=== PATIENT | male | born 2000 | race Caucasian/White ===

== ENCOUNTER 2023-10-22 15:43 | Emergency (ER) | payer OTHER, SELFPAY ==
--- NOTE | 2023-10-22 15:44 | ED.URI ---
HPI - URI/Sore Throat General Chief Complaint: Upper Respiratory Infection Stated Complaint: Sore Throat Time Seen by Provider: 10/22/23 16:05 Source: patient, RN notes reviewed and old records reviewed Mode of arrival: ambulatory Limitations: no limitations History of Present Illness HPI Narrative: 23-year-old male presents to the [facility] with complaints of a sore throat, feeling feverish, body aches that started last night. Took 1 dose of Tylenol Related Data Home Medications Medication Instructions Recorded Confirmed No Home Medications 10/22/23 10/22/23 Allergies Allergy/AdvReac Type Severity Reaction Status Date / Time No Known Allergies Allergy Verified 10/22/23 15:54 Review of Systems Review of Systems: All systems reviewed & are unremarkable except as noted in HPI and below Constitutional: Constitutional: Reports as per HPI, Reports body ache(s), Reports fatigue and Reports fever(s) (Subjective) Eyes: Eyes: Reports no additional eye complaints ENT: Reports as per HPI and Reports sore throat Cardiovascular: Cardiovascular: Reports no additional cardiovascular complaints, Denies chest pain and Denies dyspnea Respiratory: Respiratory: Reports no additional respiratory complaints, Denies chest congestion, Denies cough and Denies dyspnea Gastrointestinal: Gastrointestinal: Reports no additional gastrointestinal complaints, Denies abdominal pain, Denies nausea and Denies vomiting Musculoskeletal: Musculoskeletal: Reports no additional musculoskeletal complaints Integumentary/Breasts: Skin/Breast: Reports system reviewed and no additional complaints, except as docu Neurologic: Reports system reviewed and no additional complaints, except as documented Psychiatric: Psychiatric: Reports no additional psychiatric complaints Allergic/Immunologic: Allergic/Immunologic: Reports no additional allergic/immunologic complaints PMFSH Comments At the time of my signature, I reviewed and agree with the nursing past medical, surgical, social, and family history. There is no relevant family history pertinent to the patient complaint. Exam Const: General: cooperative, healthy appearing, comfortable, no acute distress, well developed, alert and well nourished Nutritional Appearance: well nourished Orientation/consciousness: patient oriented x3 Limitations: no limitations HENMT: Head: normal to inspection Ears: hearing grossly normal bilaterally, external ears normal, TM's normal bilaterally, EAC's normal, mastoids normal and no periauricular adenopathy Face/Nose/Sinus: Normal external nose present, Normal nares present, Normal nasal mucous membranes and turbinates present, normal facial exam and face symmetric Face and sinus: normal facial exam and face symmetric Mouth: Yes Normal oral and palatal mucosa present, Yes lip normal and Yes tongue normal Throat: tonsils normal, uvula midline, posterior oropharynx abnormal cobblestoning; no edema, no erythema and no exudates, postnasal drainage and no uvular edema Eyes: General: appearance normal, both eyes and all related structures Alignment and Position: alignment normal Periorbital: periorbital findings normal Pupils: Equal, round and reactive pupils present EOM: EOMs intact bilaterally Neck: Neck: normal visual inspection, full ROM, no lymphadenopathy and no meningeal signs Chest: Chest palpation & inspection: normal inspection of the chest Resp: Effort & Inspection: normal respiratory effort and able to speak in complete sentences Auscultation: clear to auscultation bilaterally, no crackles, no rales, no rhonchi and no wheezes Cardio: Rate: regular rate Rhythm: regular rhythm Skin: General skin exam: normal color and no rashes or lesions noted Lesions: no lesions Rashes: no rashes Trauma: no lacerations or abrasions Wounds: no wounds Neuro: General: patient oriented x3, gait normal, tone normal, moves all extremities and no meningeal signs Cranial nerves:
[2023-10-22 15:58] VITALS: BP 107/71; PULSE 97; RESP 16; TEMP 36.5; O2SAT 100
[2023-10-22 16:06] LABS: EDSTREPNEGPOS1 Negative (Negative)
== END 2023-10-22 16:23 | disposition home or self-care (01) ==
PROVIDERS: Emergency Provider Nurse Practitioner
DX: R09.82 Postnasal drip (principal); J06.9 Acute upper respiratory infection, unspecified; J02.9 Acute pharyngitis, unspecified
CPT/HCPCS: 87081; 87880; 99203; G0463

== ENCOUNTER 2024-02-13 13:42 | Emergency (ER) | payer OTHER, SELFPAY ==
[2024-02-13 14:02] VITALS: BP 114/74; PULSE 116; RESP 22; TEMP 37.8; O2SAT 100
--- NOTE | 2024-02-13 14:16 | ED_ITS ---
HPI - URI/Sore Throat General Chief Complaint: Upper Respiratory Infection Stated Complaint: fever,vomiting,cough History of Present Illness HPI Narrative: patient is a 23-year-old male, without significant past medical history, presents to [facility] with 3 day history of URI symptoms, body aches, chills, sore throat, nasal congestion and a productive cough with green sputum reported. He notes that his nasal discharge has been clear. He has checked his temperature at home and T-max is 100.4? this morning. He has no known sick contacts but does report that his best friend who is an RN advised him of the pneumonia that has been going around and that has prompted his visit. He denies associated chest pain shortness of breath, he has no diarrhea or constipation reports he has had some nausea and vomited once 2 days ago. He has been eating a bland diet since that time and tolerating well. He denies any additional associated symptoms or modifying factors Related Data Allergies Allergy/AdvReac Type Severity Reaction Status Date / Time No Known Allergies Allergy Verified 02/13/24 14:06 Review of Systems Constitutional: Comments: refer to HPI ENT: Comments: refer HPI Respiratory: Comments: for HPI Exam Const: General: healthy appearing, no acute distress and alert Nutritional Appearance: well nourished Orientation/consciousness: patient oriented x3 Limitations: no limitations HENMT: Head: normal to inspection Ears: external ears normal, TM's normal bilaterally and EAC's normal Face/Nose/Sinus: Normal external nose present Mouth: Yes Normal oral and palatal mucosa present and Yes lip normal Throat: posterior oropharynx normal and uvula midline Eyes: Conjunctivae: conjunctivae normal EOM: EOMs intact bilaterally Neck: Neck: normal visual inspection, no lymphadenopathy and no meningeal signs Resp: Effort & Inspection: normal respiratory effort Auscultation: diminished lung sounds bilateral in the lower lung pulliam Cardio: Rate: regular rate Rhythm: regular rhythm GI: GI Palp: Yes Soft to palpation, No Tenderness to palpation present (GI), No Guarding due to palpation present (GI), No Rigid due to palpation, No Hernia present, No Palpable mass present and No Rebound tenderness present Back/Spine/Pelvis: Back: no CVA tenderness Skin: General skin exam: normal color Rashes: no rashes Wounds: no wounds Neuro: General: patient oriented x3, moves all extremities, no meningeal signs, no focal motor deficits and CN's II-XI intact bilaterally Extrem: General: normal to inspection Course Course Emergency Course: patient is advised of the plan to treat empirically for community-acquired pneumonia per CDC recommendations, will defer imaging at this time as patient's oxygen saturation is normal. Will treat with Zithromax, short steroid course, [id number] NyQuil, APAP and pushing fluids. Patient verbalized unde Level of Care: Express Care Visit (08248) Vital Signs Vital signs: Vital Signs Temperature 37.8 C H 02/13/24 14:02 Pulse Rate 116 H 02/13/24 14:02 Respiratory Rate 22 H 02/13/24 14:02 Blood Pressure 114/74 02/13/24 14:02 Pulse Oximetry 100 02/13/24 14:02 Oxygen Delivery Room Air 02/13/24 14:02 Temperature 37.8 C H 02/13/24 14:02 Pulse Rate 116 H 02/13/24 14:02 Respiratory Rate 22 H 02/13/24 14:02 Blood Pressure 114/74 02/13/24 14:02 Pulse Oximetry 100 02/13/24 14:02 Oxygen Delivery Room Air 02/13/24 14:02 MDM - URI/Sore Throat MDM Narrative Medical decision making narrative: Zithromax/ prednisone, OTC cold medications Differential Diagnosis Differential diagnosis: Likely upper respiratory infection, otitis media, sinusitis, viral infection, bronchitis and other (cap) Discharge Plan Discharge Clinical Impression: Bronchitis Upper respiratory infection Qualifiers: URI type: unspecified viral URI Qualified Code(s): J06.9 - Acute upper respiratory infection, unspecified Patient Disposition: Home, Self-Care Condition: Stable Instructions: Antibiotic Form, Acute Bronchitis (ED), Bacterial Pneumonia (DC) Additional Instructions: PUSH FLUIDS AND REST, COMPLETE ANTIBIOTICS AND STEROIDS PRESCRIBED. YOU MAY TAKE JIZT-SEF-TITELOL NYQUIL OR DELSYM DIRECTED, TYLENOL MAY BE CONTINUED FOR FEVERS AND DISCOMFORT. SEE HER PRIMARY DOCTOR IN 3-5 DAYS IF SYMPTOMS NOT RESOLVING, ER IF CONDITION WORSENS IN ANY WAY Patient Language: Swedish Prescriptions: New prednisone 20 mg tablet 40 mg PO DAILY 5 Days Qty: 10 0RF azithromycin [Zithromax] 500 mg tablet 500 mg PO DAILY 5 Days Qty: 5 0RF Follow-up/Referrals: PHYSICIAN,HELP DESK SUPERVISOR [Primary Care Provider] - Stand Alone Forms: Work/School Release IP Time of Disposition: 14:22
--- OUTSIDE RECORDS SUMMARY | 2024-02-20 16:08 | XMS_ITS | Encounter Summary ---
Author Organization [facility] Address [address] [place] [address] Care Team Providers Care Piecer Name Role Phone No, Physician Primary Care Provider [phone] Reason for Visit * Reason Onset Date Comments Test Results 12/18/2019 Encounter Details Date Type Department Care Team (Late st Contact Info) Description 12/18/2019 Telephone [facility] [address] [place] [address] Ayesha Baltazar MA Test Results Social History Tobacco Use Types Packs/Day Years Used Date Smoking Tobacco: Never Alcohol Use Standard Drinks/Week Comments Not Currently 0 (1 standard drink = 0.6 oz pur e alcohol) Sex and Gender Information Value Date Recorded Sex Assigned at Not on file 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
--- OUTSIDE RECORDS SUMMARY | 2024-02-20 16:08 | XMS_ITS | Encounter Summary ---
Author Organization [facility] Address [address] [place] [address] Care Team Providers Care Communications Strategist Name Role Phone No, Physician Primary Care Provider [phone] Reason for Referral * Diagnostic Imaging (Routine) - Closed Specialty Diagnoses / Procedures Referred By Contac t Referred To Contact Diagnoses Testicular pain Procedures US Scrotum W Complete Doppler (C) Sanjiv Acuna MD Phone: tel: fax: [address] [phone] Referral ID Status Reason Start Date Expiration Date Visits Re quested Visits Authorized [id number] Closed 07/12/2019 01/20/2021 1 1 Reason for Visit * Diagnostic Imaging (Routine) - Closed Specialty Diagnoses / Procedures Referred By Contac t Referred To Contact Diagnoses Testicular pain Procedures US Scrotum W Complete Doppler (C) Sanjiv Acuna MD Phone: tel: fax: [address] [phone] Referral ID Status Reason Start Date Expiration Date Visits Re quested Visits Authorized [id number] Closed 07/12/2019 01/20/2021 1 1 Encounter Details Date Type Department Care Team (Latest Contact Info) Description 12/09/2019 8:47 AM CDT - 12/09/2019 11:59 PM CDT Hospital Encounter [facility] [address] [place] [id number] [place] [address] [address] [place] [address] Testicular pain Discharge Disposition: Discharge to home or self care Social History Tobacco Use Types Packs/Day Years Used Date Smoking Tobacco: Never Alcohol Use Standard Drinks/Week Comments Not Currently 0 (1 standard drink = 0.6 oz pur e alcohol) Sex and Gender Information Value Date Recorded Sex Assigned at Not on file 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 Gender Identity Not on file Sexual Orientation Not on file documented as of this encounter Medications at Time of Discharge ibuprofen (ADVIL,MOTRIN) suspension 100 mg/5 mL Take by mouth every 4 (four) hours as needed for pain multivitamin,tx-m inerals tablet Take by mouth documented as of this encounter Discharge Disposition Disposition Code Departure Means Destination Discharge to home or self care documented in this encounter Plan of Treatment Not on file documented as of this encounter Procedures Procedure Name Priority Date/Time Associated Diagnosis Comments US SCROTUM W COMPLETE DOPPLER (C) Schedule Routine, Read Routine (OP Routine) 12/09/2019 9:42 AM CDT Testicular pain documented in this encounter Results * US Scrotum W Complete Doppler (C) (12/09/2019 9:42 AM CDT) Anatomical Region Laterality Modality Testis N/A Ultrasound 12/09/2019 9:28 AM CDT Impressions 12/09/2019 11:27 AM CDT ?? Normal scrotal ultrasound. No evidence of testicular mass or torsion. THIS IS AN ELECTRONICALLY VERIFIED FINAL REPORT 12/09/2019 11:24 AM - Electronically signed by Hever Perdomo M.D. KRISHNA: KRISHNA D: ??12/09/2019 11:24 AM T: ??12/09/2019 11:24 AM Report ID: [id number] Reading Location: ??[id number] Narrative 12/09/2019 11:27 AM CDT [facility] ?Imaging Result Name: WESTON ZELAYA Iona ? Ordering Phys: SANJIV ACUNA Age: 19 ?Date of : 2000 ? Accession Number: [id number] Date of Service: 12/09/2019 ??Gender: M EXAM DESCRIPTION: ?? US SCROTUM W COMPLETE DOPPLER (C) REASON FOR STUDY: ?? Left intermittent testicular pain for 3 months TECHNIQUE: ??Bauman scale imaging of the scrotum and testes with selected color Doppler and spectral images. COMPARISON: ?? None ??RIGHT: TESTICLE: The right testicle measures ??2.8 x 4.3 x 2.0 cm. ??The right testicle is normal in echotexture and contour with no mass. ??There is normal blood flow. EPIDIDYMIS: ??The epididymis is normal in size and appearance. HYDROCELE OR VARICOCELE: ??There is no evidence of significant hydrocele or varicocele. HERNIA OR EXTRA-TESTICULAR MASS: ??There is no evidence of extratesticular mass. OTHER: ??No other significant finding. LEFT: TESTICLE: The left testicle measures ??2.8 x 4.2 x 2.1 cm. ??The left testicle is normal in echotexture and contour with no mass. ??There is normal blood flow. EPIDIDYMIS: ??The epididymis is normal in size and appearance. HYDROCELE OR VARICOCELE: ??There is no evidence of significant hydrocele or varicocele. HERNIA OR EXTRA-TESTICULAR MASS: ??There is no evidence of extratesticular mass. OTHER: ??No other significant finding. Procedure Note Hever Perdomo MD - 12/09/2019 [facility] Imaging Result Name: WESTON ZELAYA Ordering Phys: SANJIV ACUNA Age: 19 Date of : 2000 Accession Number: [id number] Date of Service: 12/09/2019 Gender: M EXAM DESCRIPTION: US SCROTUM W COMPLETE DOPPLER (C) REASON FOR STUDY: Left intermittent testicular pain for 3 months TECHNIQUE: Bauman scale imaging of the scrotum and testes with selectedcolor Doppler and spectral images. COMPARISON: None RIGHT: TESTICLE: The right testicle measures 2.8 x 4.3 x 2.0 cm. The righttesticle is normal in echotexture and contour with no mass. There is normal bloodflow. EPIDIDYMIS: The epididymis is normal in size and appearance. HYDROCELE OR VARICOCELE: There is no evidence of significant hydroceleor varicocele. HERNIA OR EXTRA-TESTICULAR MASS: There is no evidence of extratesticularmass. OTHER: No other significant finding. LEFT: TESTICLE: The left testicle measures 2.8 x 4.2 x 2.1 cm. The lefttesticle is normal in echotexture and contour with no mass. There is normal bloodflow. EPIDIDYMIS: The epididymis is normal in size and appearance. HYDROCELE OR VARICOCELE: There is no evidence of significant hydroceleor varicocele. HERNIA OR EXTRA-TESTICULAR MASS: There is no evidence of extratesticularmass. OTHER: No other significant finding. IMPRESSION: Normal scrotal ultrasound. No evidence of testicular mass or torsion. THIS IS AN ELECTRONICALLY VERIFIED FINAL REPORT 12/09/2019 11:24 AM - Electronically signed by Hever KELLER: KRISHNA Report ID: [id number] Reading Location: [place] [address] [place] Sanjiv Acuna MD IM US PROCEDURES Final Resul t documented in this encounter Visit Diagnoses Diagnosis Testicular pain Unspecified disorder of male genital organs documented in this encounter Care Teams Communications Strategist Relationship Specialty Start Date End Date No, Physician PCP - General 11/05/19 documented as of this encounter
--- OUTSIDE RECORDS SUMMARY | 2024-02-20 16:08 | XMS_ITS | Referral Summary ---
Author Organization [facility] Address [address] [place] [address] Care Team Providers Care Sap Fico Business Analyst Name Role Phone No, Physician Primary Care Provider [phone] Allergies No known active allergies Medications ibuprofen (ADVIL,MOTRIN) suspension 100 mg/5 mL Take by mouth every 4 (four) hours as needed for pain Active multivitamin,tx- minerals tablet Take by mouth Active Active Problems Problem Noted Date Diagnosed Date Left lower quadrant pain 11/21/2019 Assessment & Plan (11/21/2019 9:43 AM CDT): The patient is set to have an ultrasound. It sounds like he was told he may have a varicocele. If the ultrasound returns consistent with a hernia we will set him up for laparoscopic repair. If it ends up being a varicocele I will make a referral to Urology. The patient is in understanding of the plan. Until then he can try Tylenol alternating with ibuprofen and ice or heat to the area. 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 Gender Identity Not on file Sexual Orientation Not on file Last Filed Vital Signs Vital Sign Reading Time Taken Comments Blood Pressure 117/76 11/21/2019 9:00 AM CDT Pulse 113 11/21/2019 9:00 AM CDT Temperature 35.7 ??C (96.2 ??F) 11/21/2019 9:00 AM CD T Respiratory Rate 16 11/05/2019 4:32 PM CDT Oxygen Saturation 99% 11/05/2019 4:32 PM CDT Inhaled Oxygen Concentration - - Weight 68.3 kg (150 lb 8 oz) 11/21/2019 9:00 AM CDT Height 180.3 cm (5' 11 ) 11/21/2019 9:00 AM CDT Body Mass Index 20.99 11/21/2019 9:00 AM CDT Plan of Treatment Not on file Care Teams Sap Fico Business Analyst Relationship Specialty Start Date End Date No, Physician PCP - General 11/05/19
--- OUTSIDE RECORDS SUMMARY | 2024-02-20 16:08 | XMS_ITS | Encounter Summary ---
Author Organization [facility] Address [address] [place] [address] Phone Care Team Providers Care Domestic Laundry Worker Name Role Phone Whitney Barragan MD Primary Care Provider [phone] Reason for Referral * Diagnostic Imaging (Routine) - Closed Specialty Diagnoses / Procedures Referred By Anamaria sawant Referred To Contact Diagnoses Testicular pain Procedures US Scrotum W Complete Doppler (C) Sanjiv Acuna MD Phone: tel: fax: [facility] [address] [place] [address] Referral ID Status Reason Start Date Expiration Date Visits Re quested Visits Authorized [id number] Closed 07/12/2019 01/20/2021 1 1 Encounter Details Date Type Department Care Team (Late st Contact Info) Description 07/12/2019 12:00 PM CDT Office Visit [facility] - [facility] [place] [facility] [address] [facility] [place] [place] [address] [place] [address] [place] [phone] [place] [address] Testicular pain (Primary Dx) Social History Tobacco Use Types Packs/Day Years Used Date Smoking Tobacco: Never Alcohol Use Standard Drinks/Week Comments Not Currently 0 (1 standard drink = 0.6 oz pur e alcohol) Sex and Gender Information Value Date Recorded Sex Assigned at Not on file 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 Gender Identity Not on file Sexual Orientation Not on file documented as of this encounter Last Filed Vital Signs Vital Sign Reading Time Taken Comments Blood Pressure 121/69 07/12/2019 12:46 PM CDT Pulse 114 07/12/2019 12:46 PM CDT Temperature 37.1 ??C (98.8 ??F) 07/12/2019 12:46 PM C DT Respiratory Rate - - Oxygen Saturation - - Inhaled Oxygen Concentration - - Weight 65.8 kg (145 lb) 07/12/2019 12:46 PM CDT Height 180.3 cm (5' 11 ) 07/12/2019 12:46 PM CDT Body Mass Index 20.22 07/12/2019 12:46 PM CDT documented in this encounter Progress Notes * Sanjiv Acuna MD - 07/12/2019 12:00 PM CDT Urology History and Physical CC: Testicular pain HPI: Weston Zelaya is a 19 y.o. male presents with chief complaints of right scrotal pain. According to the patient, he was practicing edging which essentially is masturbating but stopping just before climax and not ejaculating. He was doing this for 2-3 weeks which resulted in right-sided testicular discomfort for which he went to ER. He was treated symptomatic. Patient reports that he is not sexual ly active and denies any prior sexually transmitted infections. He denies any significant lower urinary tract symptoms dysuria, hematuria, calculus disease or prior and urological interventions Past Medical History: Diagnosis Date ??? Anxiety ??? Depression Past Surgical History: Procedure Laterality Date ??? BLADDER STONE REMOVAL ??? LUNG SURGERY Social History Tobacco Use ??? Smoking status: Never Smoker Substance Use Topics ??? Alcohol use: Not Currently History reviewed. No pertinent family history. (Not in a hospital admission) No Known Allergies Review of Systems: All other symptoms except HPI are negative Objective: Vitals: BP 121/69 Pulse 114 Temp 37.1 ??C (98.8 ??F) Ht 180.3 cm (5' 11 ) Wt 65.8 kg (145 lb) BMI20.22 kg/m?? Physical exam: General: Does not appear in acute distress; No pain present Head: Normocephalic/Atraumatic Eyes: No discharge noted; (R,L) extraocular movements are intact; Ears: (R,L) hearing grossly normal Nose/Mouth/Throat: Mucous membranes moist Neck: Neck inspection is normal; neck ROM normal Respiratory: Has normal respiratory effort; Exam: Penis normal. Bilateral testis normal Extremities: (R,L) Patrick and warm; no edema Musculoskeletal: Normal range of motion present Neurology: Patient is alert and oriented to person, place and time. Mood: Has normal mood and affect Lab/Radiology/Diagnostic Review: No results found for any visits on 07/12/19. Assessment : Weston Zelaya is a 19 y.o. male presenting for evaluation of testicular pain - discussed about differential diagnosis for testicular pain including sexually transmitted infections - discussed about safe sexual practices Plan: - scrotal ultrasound Sanjiv Acuna MD Faculty, Urology division, Department of surgery, [facility] ([facility]) [facility] [place] ([facility]) documented in this encounter Plan of Treatment Not on file documented as of this encounter Results * US Scrotum W Complete Doppler (C) (12/09/2019 9:42 AM CDT) Anatomical Region Laterality Modality Testis N/A Ultrasound 12/09/2019 9:28 AM CDT Impressions 12/09/2019 11:27 AM CDT ?? Normal scrotal ultrasound. No evidence of testicular mass or torsion. THIS IS AN ELECTRONICALLY VERIFIED FINAL REPORT 12/09/2019 11:24 AM - Electronically signed by Hever KELLER: KRISHNA D: ??12/09/2019 11:24 AM T: ??12/09/2019 11:24 AM Report ID: [id number] Reading Location: ??[id number] Narrative 12/09/2019 11:27 AM CDT [facility] ?Imaging Result Name: WESTON ZELAYA ? Ordering Phys: SANJIV ACUNA Age: 19 ?Date of : 2000 ? Accession Number: [id number] Date of Service: 12/09/2019 ??Gender: M EXAM [...] Procedure Note Hever Perdomo MD - 12/09/2019 [facility] Imaging Result Name: WESTON ZELAYA [place] Ordering Phys: SANJIV ACUNA Age: 19 Date of : 2000 Accession Number: [id number] Date of Service: 12/09/2019 Gender: M EXAM [...] signed by Hever Perdomo M.D. KRISHNA: KRISHNA Report ID: [id number] Reading Location: [place] [address] [place] Sanjiv Acuna MD [facility] [place] Final Resul t documented in this encounter Visit Diagnoses Diagnosis Testicular pain- Primary Unspecified disorder of male genital organs Testicular pain Unspecified disorder of male genital organs documented in this encounter Historical Medications * This list may reflect changes made after this encounter. multivitamin,tx-m inerals tablet Take by mouth ibuprofen (ADVIL,MOTRIN) suspension 100 mg/5 mL Take by mouth every 4 (four) hours as needed for pain added in this encounter Care Teams Domestic Laundry Worker Relationship Specialty Start Date End Date Whitney Barragan MD [address] [place] [address] PCP - General 09/18/16 11/04/19 documented as of this encounter
--- OUTSIDE RECORDS SUMMARY | 2024-02-20 16:08 | XMS_ITS | Encounter Summary ---
Author Organization [facility] Address [address] [place] [address] Care Team Providers Care Accordion Repairer Name Role Phone No, Physician Primary Care Provider [phone] Reason for Visit * Reason Comments Mass Encounter Details Date Type Department Care Team (Late st Contact Info) Description 11/05/2019 4:20 PM CDT - 11/05/2019 4:34 PM CDT Emergency [facility] Emergency Department [address] [place] [id number] Abdominal pain (Primary Dx) Discharge Disposition: Discharge to home or self care Social History Tobacco Use Types Packs/Day Years Used Date Smoking Tobacco: Never Alcohol Use Standard Drinks/Week Comments Not Currently 0 (1 standard drink = 0.6 oz pur e alcohol) Sex and Gender Information Value Date Recorded Sex Assigned at Not on file 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 Gender Identity Not on file Sexual Orientation Not on file documented as of this encounter Last Filed Vital Signs Vital Sign Reading Time Taken Comments Blood Pressure 114/68 11/05/2019 4:32 PM CDT Pulse 97 11/05/2019 4:32 PM CDT Temperature 36.7 ??C (98.1 ??F) 11/05/2019 4:32 PM CD T Respiratory Rate 16 11/05/2019 4:32 PM CDT Oxygen Saturation 99% 11/05/2019 4:32 PM CDT Inhaled Oxygen Concentration - - Weight - - Height - - Body Mass Index - - documented in this encounter Discharge Diagnoses Diagnosis Unspecified abdominal pain - UNSPECIFIED ABDOMINAL PAIN Other specified anxiety disorders - OTHER SPECIFIED ANXIETY DISORDERS documented in this encounter Discharge Instructions * Discharge Instructions* Adalgisa Gentile NP - 11/05/2019 4:28 PM CDT Use over the counter Tylenol and Motrin per manufacturers guidelines for relief of pain and fever. Follow up with Dr. Barragan and Dr. Hernandez without fail. * Attachments The following attachments cannot be sent through Care Everywhere. * Unknown Causes of Abdominal Pain (Male) (Malaysian) documented in this encounter Medications at Time of Discharge ibuprofen (ADVIL,MOTRIN) suspension 100 mg/5 mL Take by mouth every 4 (four) hours as needed for pain multivitamin,tx-m inerals tablet Take by mouth documented as of this encounter Discharge Disposition Disposition Code Departure Means Destination Discharge to home or self care documented in this encounter ED Notes * Adalgisa Gentile NP - 11/05/2019 4:24 PM CDT HPI Chief Complaint Patient presents with ??? Mass 19 y.o. year old male with PMHX Anxiety Depression; accompanied by Self presents to ED with c/o Mass Denies fever, chills, nausea, vomiting, diarrhea, SOB, CP, numbness, tingling. Pt noticed a mass to LLQ 3 months ago. Pt denies pain. Pt states mass is not noticeable upon standing. Denies urinary or fecal incontinence. Pt has not taken OTC medication for relief of pain. Denies other complaint at this time. Patient History There are no active problems to display for this patient. Past Medical History: Diagnosis Date ??? Anxiety ??? Depression Past Surgical History: Procedure Laterality Date ??? BLADDER STONE REMOVAL ??? LUNG SURGERY No family history on file. Social History Tobacco Use ??? Smoking status: Never Smoker Substance Use Topics ??? Alcohol use: Not Currently ??? Drug use: Not Currently Social History Social History Narrative ??? Not on file Review of Systems Review of Systems Constitutional: Negative. Negative for chills and fever. HENT: Negative. Negative for ear pain and sore throat. Eyes: Negative. Negative for pain and visual disturbance. Respiratory: Negative. Negative for cough and shortness of breath. Cardiovascular: Negative. Negative for chest pain and palpitations. Gastrointestinal: Positive for abdominal pain. Negative for vomiting. Genitourinary: Negative. Negative for dysuria and hematuria. Musculoskeletal: Negative. Negative for arthralgias and back pain. Skin: Negative. Negative for color change and rash. Neurological: Negative. Negative for seizures and syncope. Psychiatric/Behavioral: Negative. All other systems reviewed and are negative. Physical Exam ED Triage Vitals Temp Pulse Resp BP SpO2 -- -- -- -- -- Temp src Heart Rate Source Patient Position BP Location FiO2 (%) -- -- -- -- -- Physical Exam Vitals signs and nursing note reviewed. Constitutional: General: He is awake. He is not in acute distress. Appearance: Normal appearance. He is well-developed. He is not ill-appearing, toxic-appearing or diaphoretic. HENT: Head: Normocephalic and atraumatic. Right Ear: Hearing and external ear normal. Left Ear: Hearing and external ear normal. Nose: Nose normal. Mouth/Throat: Lips: [place]. Mouth: Mucous membranes are moist. Eyes: General: Lids are normal. Conjunctiva/sclera: Conjunctivae normal. Neck: Musculoskeletal: Full passive range of motion without pain, normal range of motion and neck supple. Trachea: Trachea and phonation normal. Cardiovascular: Rate and Rhythm: Normal rate and regular rhythm. Pulses: Normal pulses. No decreased pulses. Heart sounds: Normal heart sounds. No murmur. Pulmonary: Effort: Pulmonary effort is normal. No respiratory distress. Breath sounds: Normal breath sounds and air entry. No stridor, decreased air movement or transmitted upper airway sounds. No decreased breath sounds, wheezing, rhonchi or rales. Abdominal: Palpations: Abdomen is soft. There is no shifting dullness, fluid wave, hepatomegaly, splenomegaly,mass or pulsatile mass. Tenderness: There is no abdominal tenderness. There is no right CVA tenderness or left CVA tenderness. Lymphadenopathy: Cervical: No cervical adenopathy. Skin: General: Skin is warm and dry. Capillary Refill: Capillary refill takes less than 2 seconds. Neurological: General: No focal deficit present. Mental Status: He is alert, oriented to person, place, and time and easily aroused. Psychiatric: Attention and Perception: Attention normal. Mood and Affect: Mood normal. Speech: Speech normal. Behavior: Behavior normal. Behavior is cooperative. Thought Content: Thought content normal. Cognition and Memory: Cognition normal. Judgment: Judgment normal. [facility] ED Course as of Nov 05 1627 Time: 11/04 1621 Comment: Advised pt to follow up with PMD and Dr. Hernandez. Pt verbalized understanding. All questions answered at this time. By: Adalgisa Gentile NP Final diagnoses: Abdominal pain Adalgisa Gentile NP 11/05/191627 Cosigned by Ten Townsend MD at 11/05/2019 8:39 PM CDT Associated attestation - Ten Townsend MD - 11/05/2019 8:39 PM CDT ED Attestation Based on the medical record the care appears appropriate. * Kalia Hankins RN - 11/05/2019 4:23 PM CDT Pt arrives with C/O a lump in RLQ. Pt believes he first noticed a mass in early July but was unableto seek treatment due to lack of insurance. During exam, there is no palpable mass present. Pt denies any pain/pressure, GI or sx. Pt relays he is unable to detect the mass when standing. There isno change or detectable mass when coughing or bearing down. Pt has no other complaints. documented in this encounter Plan of Treatment Not on file documented as of this encounter Visit Diagnoses Diagnosis Abdominal pain- Primary Abdominal pain, unspecified site documented in this encounter Care Teams Accordion Repairer Relationship Specialty Start Date End Date No, Physician PCP - General 11/05/19 documented as of this encounter
--- OUTSIDE RECORDS SUMMARY | 2024-02-20 16:08 | XMS_ITS | Encounter Summary ---
Author Organization [facility] Address [address] [place] [address] Care Team Providers Care Material Engineer Name Role Phone No, Physician Primary Care Provider [phone] Reason for Visit * Reason Comments Abdominal Pain Encounter Details Date Type Department Care Team (Late st Contact Info) Description 11/21/2019 9:10 AM CDT Office Visit [facility] [address] [facility] [address] [place] [address] Ronn Hernandez MD [address] [place] [address] [address] [place] [address] Left lower quadrant pain (Primary Dx) Social History Tobacco Use Types Packs/Day Years Used Date Smoking Tobacco: Never Alcohol Use Standard Drinks/Week Comments Not Currently 0 (1 standard drink = 0.6 oz pur e alcohol) Sex and Gender Information Value Date Recorded Sex Assigned at Not on file 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 Gender Identity Not on file Sexual Orientation Not on file documented as of this encounter Last Filed Vital Signs Vital Sign Reading Time Taken Comments Blood Pressure 117/76 11/21/2019 9:00 AM CDT Pulse 113 11/21/2019 9:00 AM CDT Temperature 35.7 ??C (96.2 ??F) 11/21/2019 9:00 AM CD T Respiratory Rate - - Oxygen Saturation - - Inhaled Oxygen Concentration - - Weight 68.3 kg (150 lb 8 oz) 11/21/2019 9:00 AM CDT Height 180.3 cm (5' 11 ) 11/21/2019 9:00 AM CDT Body Mass Index 20.99 11/21/2019 9:00 AM CDT documented in this encounter Progress Notes * Ronn Hernandez MD - 11/21/2019 9:10 AM CDT Images from the original note were not included. Surgery Consult Subjective: Patient Name: Weston Zelaya Date of Visit: 11/21/19 HPI: Weston Zelaya is a 19 y.o. male presenting for surgical evaluation of abdominal pain. This waslocated in the LLQ. It is described as dull. Not always present. It started in August. He states it started around an episode of masturbation where he did not ejaculate. Tylenol may have mildly improvethe discomfort. He has some associated nausea and also anxiety. Chief Complaint: Abdominal Pain Referred by: Physician No Allergies as of 11/21/2019 ??? (No Known Allergies) Current Outpatient Medications: ??? ibuprofen (ADVIL,MOTRIN) suspension 100 mg/5 mL ??? multivitamin,tx-minerals tablet Past Medical History: Diagnosis Date ??? Anxiety ??? Depression Past surgical history appendectomy. Patient denies family history of gi malignancy Social History Socioeconomic History ??? Marital status: Single Spouse name: Not on file ??? Number of children: Not on file ??? Years of education: Not on file ??? Highest education level: Not on file Occupational History ??? Not on file Social Needs ??? Financial resource strain: Not on file ??? Food insecurity Worry: Not on file Inability: Not on file ??? Transportation needs Medical: Not on file Non-medical: Not on file Tobacco Use ??? Smoking status: Never Smoker Substance and Sexual Activity ??? Alcohol use: Not Currently ??? Drug use: Not Currently ??? Sexual activity: Defer Lifestyle ??? Physical activity Days per week: Not on file Minutes per session: Not on file ??? Stress: Not on file Relationships ??? Social connections Talks on phone: Not on file Gets together: Not on file Attends mandaeism service: Not on file Active member of club or organization: Not on file Attends meetings of clubs or organizations: Not on file Relationship status: Not on file ??? Intimate partner violence Fear of current or ex partner: Not on file Emotionally abused: Not on file Physically abused: Not on file Forced sexual activity: Not on file Other Topics Concern ??? Not on file Social History Narrative ??? Not on file Review of Systems Constitutional: Negative for activity change. HENT: Negative for hearing loss and sore throat. Eyes: Negative for visual disturbance. Respiratory: Negative for cough and shortness of breath. Cardiovascular: Negative for chest pain. Gastrointestinal: Negative for abdominal pain, constipation, diarrhea, nausea and vomiting. Genitourinary: Negative for dysuria. Musculoskeletal: Negative for back pain. Neurological: Negative for dizziness and syncope. Psychiatric/Behavioral: Negative for agitation and confusion. Objective: Vitals BP 117/76 (BP Location: Right arm, Patient Position: Sitting) Pulse 113 Temp (!) 35.7 ??C (96.2 ??F) Ht 180.3 cm (5' 11 ) Wt 68.3 kg (150 lb 8 oz) BMI 20.99 kg/m?? Physical Exam Constitutional: The patient is oriented to person, place, and time. They appear well-nourished. No distress. HENT: Head: Normocephalic and atraumatic. Eyes: Pupils are equal, round, and reactive to light. Neck: No thyromegaly present. Cardiovascular: Normal rate and regular rhythm. Pulmonary/Chest: Effort normal and breath sounds normal. Abdominal: Soft. non distended. There is no tenderness. No hernia. Genitourinary: Rectum normal. No appreciable inguinal impulse Musculoskeletal: Normal range of motion. Neurological: alert and oriented to person, place, and time. Skin: Skin is warm and dry. Psychiatric: normal mood and affect. Assessment/Plan Diagnoses and all orders for this visit: Left lower quadrant pain (Primary) Assessment & Plan: The patient is set to have an [...] and ice or heat to the area. Ronn Hernandez MD 9:43 AM 11/21/2019 documented in this encounter Miscellaneous Notes * Assessment & Plan Note - Ronn Hernandez MD - 11/21/2019 9:43 AM CDTAssociated Problem(s): Left lower quadrant pain The patient is set to have an [...] and ice or heat to the area. documented in this encounter Plan of Treatment Not on file documented as of this encounter Visit Diagnoses Diagnosis Left lower quadrant pain- Primary Abdominal pain, left lower quadrant documented in this encounter Care Teams Material Engineer Relationship Specialty Start Date End Date No, Physician PCP - General 11/05/19 documented as of this encounter
--- OUTSIDE RECORDS SUMMARY | 2024-02-20 16:08 | XMS_ITS | Encounter Summary ---
Author Organization [facility] Address [address] [place] [address] Phone Care Team Providers Care Supervisor Finish End Name Role Phone Whitney Barragan MD Primary Care Provider [phone] Encounter Details Date Type Department Care Team (Late st Contact Info) Description 07/11/2019 Telephone [facility] [place] [facility] [address] [facility] [address] [place] [address] [place] [address] [facility] [address] [facility] [address] [place] [address] Social History Tobacco Use Types Packs/Day Years Used Date Smoking Tobacco: Never Assessed Sex and Gender Information Value Date Recorded Sex Assigned at Not on file 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
--- OUTSIDE RECORDS SUMMARY | 2024-02-20 16:08 | XMS_ITS | Encounter Summary ---
Author Organization [facility] Healthcare Address [address] [place] [address] Care Team Providers Care Filter Tank Tender Helper Name Role Phone Whitney Barragan MD Primary Care Provider [phone] Susan Physician Primary Care Provider [phone] Encounter Details Date Type Department Care Team (Late st Contact Info) Description 07/28/2019 Telephone [facility] [address] [place] [id number] Jovanna Martinez RDMS Social History Tobacco Use Types Packs/Day Years Used Date Smoking Tobacco: Never Alcohol Use Standard Drinks/Week Comments Not Currently 0 (1 standard drink = 0.6 oz pur e alcohol) Sex and Gender Information Value Date Recorded Sex Assigned at Not on file 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
--- OUTSIDE RECORDS SUMMARY | 2024-02-20 16:08 | XMS_ITS | Encounter Summary ---
Author Organization [facility] Healthcare Address [address] [place] [address] Care Team Providers Care Summer Babysitter Name Role Phone No, Physician Primary Care Provider [phone] Encounter Details Date Type Department Care Team (Late st Contact Info) Description 12/15/2019 Orders Only [facility] [address] [place] [address] Ronn Hernandez MD [address] [place] [id number] Pain in left testicle (Primary Dx) Social History Tobacco Use Types Packs/Day Years Used Date Smoking Tobacco: Never Alcohol Use Standard Drinks/Week Comments Not Currently 0 (1 standard drink = 0.6 oz pur e alcohol) Sex and Gender Information Value Date Recorded Sex Assigned at Not on file 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
--- OUTSIDE RECORDS SUMMARY | 2024-02-20 16:08 | XMS_ITS | Encounter Summary ---
Author Organization [facility] Address [address] [place] [address] Care Team Providers Care Band Presser Name Role Phone No, Physician Primary Care Provider [phone] Encounter Details Date Type Department Care Team (Late st Contact Info) Description 12/18/2019 Orders Only [facility] [address] [facility] [address] [place] [id number] Ronn Hernandez MD [address] [facility] [address] [place] [address] Social History Tobacco Use Types Packs/Day Years Used Date Smoking Tobacco: Never Alcohol Use Standard Drinks/Week Comments Not Currently 0 (1 standard drink = 0.6 oz pur e alcohol) Sex and Gender Information Value Date Recorded Sex Assigned at Not on file 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
--- OUTSIDE RECORDS SUMMARY | 2024-02-20 16:08 | XMS_ITS | Clinical Summary ---
Author Organization [facility] Address [address] [place] [address] Care Team Providers Care Combat Systems Operator Mine Warfare Name Role Phone No, Physician Primary Care Provider [phone] Allergies No known active allergies Medications ibuprofen [...] and ice or heat to the area. 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
--- OUTSIDE RECORDS SUMMARY | 2024-02-20 16:09 | XMS_ITS | Encounter Summary ---
Author Organization [facility] Healthcare Address [address] [place] [address] Care Team Providers Care Marketing Instructor Name Role Phone Whitney Barragan MD Primary Care Provider [phone] Encounter Details Date Type Department Care Team (Late st Contact Info) Description 09/18/2016 12:47 PM CDT - 09/18/2016 1:40 PM CDT Emergency [facility] Emergency Department [address] [place] [address] Marion Borges MD [address] [place] [address] Discharge Disposition: Discharge to home or self care Social History Tobacco Use Types Packs/Day Years Used Date Smoking Tobacco: Never Assessed Sex and Gender Information Value Date Recorded Sex Assigned at Not on file 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
--- OUTSIDE RECORDS SUMMARY | 2024-02-20 16:09 | XMS_ITS | Encounter Summary ---
Author Organization [facility] Healthcare Address [address] [place] [address] Care Team Providers Care Secretary Specialist Name Role Phone Whitney Barragan MD Primary Care Provider [phone] Reason for Visit * Reason Comments Groin Swelling Encounter Details Date Type Department Care Team (Late st Contact Info) Description 06/18/2019 1:57 PM CDT - 06/18/2019 2:18 PM CDT Emergency [facility] Emergency Department [address] [place] [address] Aaron Garcia MD [address] [facility] [place] [address] Scrotal fullness (Primary Dx) Discharge Disposition: Discharge to home or self care Social History Tobacco Use Types Packs/Day Years Used Date Smoking Tobacco: Never Assessed Sex and Gender Information Value Date Recorded Sex Assigned at Not on file 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 Gender Identity Not on file Sexual Orientation Not on file documented as of this encounter Last Filed Vital Signs Vital Sign Reading Time Taken Comments Blood Pressure 127/90 06/18/2019 2:06 PM CDT Pulse 87 06/18/2019 2:06 PM CDT Temperature 36.4 ??C (97.6 ??F) 06/18/2019 2:06 PM CD T Respiratory Rate 15 06/18/2019 2:06 PM CDT Oxygen Saturation 100% 06/18/2019 2:06 PM CDT Inhaled Oxygen Concentration - - Weight - - Height - - Body Mass Index - - documented in this encounter Discharge Diagnoses Diagnosis Left testicular pain - LEFT TESTICULAR PAIN documented in this encounter Discharge Instructions * Discharge Instructions* Aaron Garcia MD - 06/18/2019 2:15 PM CDT Please return to the ED if you have difficulty urinating, increased pain, any new symptoms or for any other concerns. For Pain Control: Tylenol 1000 mg every 6 hr AND Aleve/naproxen 440 mg twice a day OR Ibuprofen 600 mg every 6 hr Please follow-up with Urology later this week if not improving. * Attachments The following attachments cannot be sent through Care Everywhere. * Testicle Pain (AfterCare(R) Instructions(ER/ED)) (Iraqi) documented in this encounter Discharge Disposition Disposition Code Departure Means Destination Comment s Discharge to home or self FDC documented in this encounter Progress Notes * Ana Luisa Alvarado MA - 06/18/2019 2:18 PM CDT scheduled documented in this encounter ED Notes * Stephanie Sepulveda RN - 06/18/2019 2:04 PM CDT Pt presents to the Ed with complaints of scrotum pain. Pt reports that he has been edging meaning, he comes close to climax but then does not. Pt reports pain in his left testicle. * Aaron Garcia MD - 06/18/2019 2:03 PM CDT Chief Complaint Patient presents with ??? Groin Swelling 2:16 PM - Weston Zelaya is a 19 y.o. male patient with no chronic illnesses, presenting to the ED complaining of constant mild left testicular pain for the last 5 days s/p voluntary edging . Edging is the process of coming near a climate, but then controlling it to prevent an ejaculation.The pt claims intermittent nausea. Pt denies any testicular swelling, penile discharge, fever, chills, vomiting, diarrhea, dysuria, or hematuria. There are no further complaints at this time. Nursing Note reviewed No past medical history on file. No past surgical history on file. HOME MEDICATIONS : Not on File No Known Allergies Review of Systems Constitutional: Negative for chills, fatigue and fever. HENT: Negative for congestion, ear pain, rhinorrhea, sneezing and sore throat. Respiratory: Negative for cough, shortness of breath and wheezing. Cardiovascular: Negative for chest pain and palpitations. Gastrointestinal: Positive for nausea. Negative for abdominal pain, constipation, diarrhea and vomiting. Genitourinary: Positive for testicular pain. Negative for difficulty urinating, discharge, dysuria,penile pain, penile swelling and scrotal swelling. Musculoskeletal: Negative for arthralgias, back pain and neck pain. Skin: Negative for rash and wound. Neurological: Negative for dizziness, syncope, weakness, light-headedness and headaches. All other systems reviewed and are negative. Physical Exam Vitals signs and nursing note reviewed. Exam conducted with a equipment processer storage present. Constitutional: General: He is not in acute distress. Appearance: He is well-developed. HENT: Head: Normocephalic and atraumatic. Right Ear: External ear normal. No drainage. Left Ear: External ear normal. No drainage. Nose: No rhinorrhea. Mouth/Throat: Mouth: Mucous membranes are moist. Eyes: Extraocular Movements: Extraocular movements intact. Conjunctiva/sclera: Conjunctivae normal. Neck: Musculoskeletal: Normal range of motion. Cardiovascular: Rate and Rhythm: Normal rate and regular rhythm. Heart sounds: Normal heart sounds. No murmur. Pulmonary: Effort: Pulmonary effort is normal. No respiratory distress. Breath sounds: Normal breath sounds. Abdominal: General: There is no distension. Palpations: Abdomen is soft. Tenderness: There is no abdominal tenderness. Genitourinary: Penis: Normal and circumcised. Scrotum/Testes: Normal. Right: Mass or tenderness not present. Left: Mass or tenderness not present. Epididymis: Right: Normal. Left: Normal. Comments: No hernia noted bilaterally. Musculoskeletal: Right lower leg: No edema. Left lower leg: No edema. Skin: General: Skin is warm and dry. Neurological: Mental Status: He is alert. Motor: Motor function is intact. Psychiatric: Behavior: Behavior is cooperative. Vitals: 06/18/19 1406 BP: 127/90 Pulse: 87 Resp: 15 Temp: 36.4 ??C (97.6 ??F) TempSrc: Temporal SpO2: 100% Labs Reviewed - No data to display No orders to display Procedures MDM Number of Diagnoses or Management Options Scrotal fullness: Diagnosis management comments: 19-year-old male previously healthy the presents today with testicular fullness/discomfort. Differential diagnosis includes retrograde ejaculation versus epididymitis versus UTI versus other acute pathology. Given his presentation of symptoms and physical exam I feel i nfectious etiology is very unlikely. ED Course as of Jun 18 1427 Time: 06/18 1415 Comment: At this time I suspect the patient had retrograde ejaculation causing his groin fullness and discomfort. I discussed ways to avoid this in the future and he voiced understanding. Also advised to follow up with Urology if not improving over the next week. Patient was comfortable with this plan and discussed [id number] pain medication the meantime. Patient discharged in stable condition. All questions answered. We had an extensive conversation regarding return precautions and need for follow up prior to disposition. By: Aaron Garcia MD IMPRESSION: 1. Scrotal fullness ATTESTATIONS: This note is prepared by Benji Bryant acting as a scribe for Aaron Garcia MD I electronically signed this note at 2:28 PM on 06/18/2019. I, Aaron Garcia MD have personally performed the services described in the documentation , reviewed the documentation, as recorded by the scribe in my presence, and it accurately and completely records my words and actions. Any errors in translation of speech to the EMR are related to software and not the clinician. Aaron Garcia MD 06/18/191427 documented in this encounter Plan of Treatment Not on file documented as of this encounter Visit Diagnoses Diagnosis Scrotal fullness- Primary documented in this encounter Care Teams Secretary Specialist Relationship Specialty Start Date End Date Whitney Barragan MD [address] [place] [id number] PCP - General 09/18/16 11/04/19 documented as of this encounter
--- OUTSIDE RECORDS SUMMARY | 2024-02-20 16:09 | XMS_ITS | Encounter Summary ---
Author Organization [facility] Care Team Providers Care Director Patient Financial Services Name Role Phone Unavailable Primary Care Provider Unavailabl e Encounter Details Date Type Department Care Team (Late st Contact Info) Description 08/25/2007 1:53 AM CDT - 08/27/2007 2:45 PM CDT Hospital Encounter [facility] Aquilino Laws MD [address] [place] [id number] Social History Tobacco Use Types Packs/Day Years Used Date Smoking Tobacco: Never Assessed Sex and Gender Information Value Date Recorded Sex Assigned at Not on file 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
--- OUTSIDE RECORDS SUMMARY | 2024-02-20 16:09 | XMS_ITS | Encounter Summary ---
Author Organization [facility] Healthcare Address [address] [place] [address] Care Team Providers Care Mail Carriers Supervisor Name Role Phone Unavailable Primary Care Provider Unavailabl e Encounter Details Date Type Department Care Team (Late st Contact Info) Description 11/18/2014 4:15 PM CDT - 11/18/2014 5:01 PM CDT Hospital Encounter [facility] Ajith Rey MD [address] [place] [address] Cellulitis of finger of right hand Social History Tobacco Use Types Packs/Day Years Used Date Smoking Tobacco: Never Assessed Sex and Gender Information Value Date Recorded Sex Assigned at Not on file 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 RESULT: Two views of the 2nd digit and single view of the right hand obtained. Soft tissue swelling of the 2nd digit particularly mid portion. ??No radiopaque foreign body seen. ??No acute fracture or subluxation identified. IMPRESSION: 1. NO RADIOPAQUE FOREIGN BODY EVIDENT. Interpreting Physician: ??NNEKA HERNANDEZ M.D. ??Read on: ??Oct ??4 2014 11:07P Transcribed by: ??lena ?? On: Nov ??5 2014 11:42A Approved Electronically by: ??NNEKA HERNANDEZ M.D. ??on: ??Oct ??5 2014 ??5:23P Attending: ??AJITH REY Requesting: ??SHAINA VILLASEÑOR ([place]) Requesting Fax: ??-- Attending Fax: ??-- Attending ID: ??[id number] Requesting ID: ??[id number] Report To 1 ID: ??[id number] Report To 1 Name: ??AJITH REY Report To 1 FAX: ??-- NextGen Order #: Procedure Note Provider, MD Lynda - 06/17/2016 XR Finger R-2nd Index [id number] Acc#: [id number] DATE OF EXAM: Nov 18 2014 CLINICAL HISTORY: Evaluate for foreign body. RESULT: Two views of the 2nd digit and single view of the right hand obtained.Soft tissue swelling of the 2nd digit particularly mid portion. Noradiopaque foreign body seen. No acute fracture or subluxationidentified. IMPRESSION: 1. NO RADIOPAQUE FOREIGN BODY EVIDENT. Interpreting Physician: NNEKA HERNANDEZ M.D. Read on: Nov 18 2014 11:07P Transcribed by: lena On: Nov 19 2014 11:42A Approved Electronically by: NNEKA HERNANDEZ M.D. on: Nov 19 2014 5:23P Attending: AJITH REY Requesting: SHAINA VILLASEÑOR ([place]) Requesting Fax: -- Attending Fax: -- Attending ID: [id number] Requesting ID: [id number] Report To 1 ID: [id number] Report To 1 Name: AJITH REY Report To 1 FAX: -- NextGen Order #: us Historical Provider IMUrbano XR PROCEDURES Final R esult documented in this encounter Visit Diagnoses Diagnosis Cellulitis of finger of right hand documented in this encounter
== END 2024-02-13 14:30 | disposition home or self-care (01) ==
PROVIDERS: Emergency Provider Nurse Practitioner Family
DX: J40 Bronchitis, not specified as acute or chronic (principal); J06.9 Acute upper respiratory infection, unspecified
CPT/HCPCS: 99213; G0463